=== PATIENT | female | born 1930 | race Caucasian/White ===

== ENCOUNTER 2017-01-19 11:43 | Emergency (ER) | payer MEDICARE, MEDICAID ==
[2017-01-19] MEDS ORDERED: HYDROmorphone 0.5 MG/0.5 ML Syringe IVPUSH ONE (12:13)
[2017-01-19] MEDS ORDERED: Ondansetron 4 MG/2 ML SDV IVPUSH ONE (12:13)
--- NOTE | 2017-01-19 12:14 | EDM.PDOC ---
ED HPI GENERAL MEDICAL PROBLEM - General Chief Complaint: Upper Extremity Injury/Pain Stated Complaint: RT WRIST INJURY Time Seen by Provider: 01/19/17 12:07 Source of Information: Reports: Patient, Family (Plan) History Limitations: Reports: No Limitations - History of Present Illness INITIAL COMMENTS - FREE TEXT/NARRATIVE: 86-year-old from [place] presents to the ED after slipping and falling outside while weeding the garden. Landed on outstretched right hand. She had obvious pain and deformity to the wrist area. She reports mild pain in the right upper arm and shoulder. She denies any other injuries other than scraping up her left knee a little bit. Injury occurred about an hour ago. Patient is right-hand dominant. Onset: Today, Sudden Onset Date: 01/19/17 Onset Time: 11:00 Duration: Minutes: Location: Reports: Upper Extremity, Right (Right wrist) Quality: Reports: Ache, Pressure, Throbbing Severity: Moderate Improves with: Reports: None Worsens with: Reports: Movement Context: Reports: Activity (Fell while picking weeds.) Associated Symptoms: Reports: Other (Right upper arm and shoulder discomfort. Abrasions left knee). Denies: Confusion, Chest Pain, Cough, cough w sputum, Diaphoresis, Fever/Chills, Headaches, Loss of Appetite, Malaise, Nausea/Vomiting , Rash, Seizure, Shortness of Breath, Syncope Treatments LEARNING CENTER COORDINATOR: Reports: Other (see below) Right Wrist Pain Score (Numeric/FACES): 5 - Related Data Allergies Allergy/AdvReac Type Severity Reaction Status Date / Time adhesive tape Allergy Cannot Verified 01/19/17 12:04 Remember Home Meds: Home Meds Aspirin [Ecotrin] 325 mg PO DAILY 04/18/16 [History] Calcium Carbonate [Calcium] 600 mg PO DAILY 04/18/16 [History] Cholecalciferol (Vitamin D3) [Vitamin D3] 2,000 unit PO DAILY 04/18/16 [History] ClonazePAM [KlonoPIN] 0.5 mg PO BEDTIME 04/18/16 [History] Cyanocobalamin (Vitamin B12) [Vitamin B12] 1,000 mcg PO DAILY 04/18/16 [History] Levothyroxine 25 mcg PO ACBREAKFAST 04/18/16 [History] Metoprolol Succinate 50 mg PO DAILY 04/18/16 [History] Multivitamin [Multivitamins] 1 tab PO DAILY 04/18/16 [History] Omeprazole 20 mg PO DAILY 04/18/16 [History] Potassium Chloride 20 meq PO DAILY 04/18/16 [History] Venlafaxine [Effexor XR] 150 mg PO DAILY 04/18/16 [History] metFORMIN HCl [Metformin HCl] 500 mg PO BID 04/18/16 [History] traMADol [Ultram] 50 mg PO Q6H PRN #20 tablet 01/19/17 [Rx] Past Medical History Cardiovascular History: Reports: Arrhythmia, Hypertension Musculoskeletal History: Reports: Arthritis, Osteoarthritis, Osteoporosis Psychiatric History: Reports: Anxiety, Dementia Endocrine/Metabolic History: Reports: Diabetes, Type II, Hypothyroidism, Vitamin D Deficiency, Other (See Below) Other Endocrine/Metabolic History: Hypokalemia - Past Surgical History Musculoskeletal Surgical History: Reports: Joint Replacement, Knee Replacement ( Right knee replacement.) Social & Family History - Tobacco Use Smoking Status *Q: Never Smoker - Recreational Drug Use Recreational Drug Use: No - Living Situation & Occupation Living situation: Reports: Single, Other (Lives at [facility].) Occupation: Retired Review of Systems - Review of Systems Review Of Systems: See Below Constitutional: Reports: No Symptoms Eyes: Reports: No Symptoms Ears: Reports: No Symptoms Nose: Reports: No Symptoms Mouth/Throat: Reports: No Symptoms Respiratory: Reports: No Symptoms Cardiovascular: Reports: No Symptoms GI/Abdominal: Reports: No Symptoms Genitourinary: Reports: Other (Frequency) Musculoskeletal: Reports: No Symptoms, Back Pain, Other (Has osteoarthritis in her hips and knees.) Skin: Reports: No Symptoms Neurological: Reports: No Symptoms Trauma Exam - Physical Exam Exam: See Below Exam Limited By: No Limitations General Appearance: Reports: Alert, WD/WN, Moderate Distress Head: Reports: Atraumatic, Normocephalic Eyes: Bilateral Eye: Normal Inspection Throat/Mouth: Reports: Normal Inspection, Normal Lips, Normal Oropharynx Respiratory Exam: Reports: No Respiratory Distress, Lungs Clear, Normal Breath Sounds, No Accessory Muscle Use. Denies: Rib Tenderness, Right, Rib Tenderness , Left Cardiovascular: Reports: Normal Peripheral Pulses, Regular Rate, Rhythm, No Edema, No Gallop, No Murmur GI/Abdominal: Reports: Normal Bowel Sounds, Soft, Non-Tender, No Distention Extremities: Other (She has an obvious hematoma radial aspect of the wrist with deformity. Ulnar and radial pulses are weak but present professional abrasions to the left anterior knee teeth. The right knee has been previously replaced in the interim today..) Neurologic: Reports: No Motor/Sensory Deficits, Alert, Normal Mood/Affect, Oriented x 3 Skin: Reports: Normal Color, Warm/Dry ED TRAUMA EXTREMITY PROCEDURES - Joint Reduction Site: other (Colles' fracture right wrist) Sedation: hematoma/fracture block Local anesthesia - Bupivicaine (Marcaine): 0.5% plain Local anesthetic volume: other (8 cc) Pre-procedure NV status: normal Post-procedure NV status: normal Technique: traction/counter traction Number of Attempts: 1 Post-reduction imaging: acceptably reduced, fracture seen Joint Reduction Complications: No Course - Vital Signs Last Recorded V/S: Last Vital Signs Temp 36.9 C 01/19/17 12:04 Pulse 70 01/19/17 15:20 Resp 14 01/19/17 15:20 BP 130/70 01/19/17 15:20 Pulse Ox 95 01/19/17 15:20 - Orders/Labs/Meds Orders: Active Orders 24 hr Category Date Time Status Wrist 2V Lt [CR] Stat Exams 01/19/17 14:42 Taken Labs: Laboratory Tests 01/19/17 01/19/17 01/19/17 Range/Units 12:51 12:51 12:51 WBC 7.04 (3.98-10.04) K/mm3 RBC 4.18 (3.98-5.22) M/mm3 Hgb 12.0 (11.2-15.7) gm/L Hct 36.3 (34.1-44.9) % MCV 86.8 (79.4-94.8) fl MCH 28.7 (25.6-32.2) pg MCHC 33.1 (32.2-35.5) g/dl RDW Std Deviation 40.6 (36.4-46.3) fL Plt Count 341 (182-369) K/mm3 MPV 8.9 L (9.4-12.3) fl Neutrophils % (Manual) 74 H (40-60) % Band Neutrophils % 4 (0-10) % Lymphocytes % (Manual) 18 L (20-40) % Atypical Lymphs % 0 % Monocytes % (Manual) 3 (2-10) % Eosinophils % (Manual) 0 L (0.7-5.8) % Basophils % (Manual) 1 (0.1-1.2) Platelet Estimate Adequate Plt Morphology Comment Normal RBC Morph Comment Normal PT 10.1 (8.0-13.0) SECONDS INR 0.93 APTT 27 (22-36) SECONDS Sodium 136 (136-145) mEq/L Potassium 4.2 (3.5-5.1) mEq/L Chloride 100 (98-107) mEq/L Carbon Dioxide 28 (21-32) mEq/L Anion Gap 12.2 (5-15) BUN 20 H (7-18) mg/dL Creatinine 0.6 (0.55-1.02) mg/dL Est Cr Clr Drug Dosing 50.13 mL/min Estimated GFR (MDRD) > 60 (>60) mL/min BUN/Creatinine Ratio 33.3 H (14-18) Glucose 103 (83-115) mg/dL Calcium 9.0 (8.5-10.1) mg/dL Total Bilirubin 0.3 (0.2-1.0) mg/dL AST 17 (15-37) U/L ALT 20 (14-59) U/L Alkaline Phosphatase 75 (46-116) U/L Total Protein 7.0 (6.4-8.2) g/dl Albumin 3.7 (3.4-5.0) g/dl Globulin 3.3 gm/dL Albumin/Globulin Ratio 1.1 (1-2) Meds: Medications Discontinued Medications Generic Name Dose Route Start Last Admin Trade Name Freq PRN Reason Stop Dose Admin Bupivacaine HCl 10 ml 01/19/17 13:30 01/19/17 14:10 Sensorcaine-Mpf 0.5% INJECT 01/19/17 13:31 10 ml ONETIME ONE Administration Hydromorphone HCl 0.5 mg 01/19/17 12:13 01/19/17 12:59 Dilaudid IVPUSH 01/19/17 12:14 0.5 mg ONETIME ONE Administration Sodium Chloride 1,000 mls @ 100 mls/hr 01/19/17 12:15 01/19/17 12:57 Normal Saline IV 100 mls/hr ASDIRECTED WILLIAM Administration Ondansetron HCl 4 mg 01/19/17 12:13 01/19/17 12:59 Zofran IVPUSH 01/19/17 12:14 4 mg ONETIME ONE Administration - Radiology Interpretation Free Text/Narrative:: 86-year-old female presents the ED after falling while picking weeds. She landed on her outstretched right hand injuring her right wrist. Exam reveals obvious deformity and hematoma radial aspect of the wrist. Plan x-ray of the wrist will be obtained. She appears to have strained some of the musculature in her upper shoulder but range of motion is normal. Mild abrasions to the left anterior knee that are not deep enough to require a tetanus shot the septum. There are no open wounds. - Re-Assessments/Exams Free Text/Narrative Re-Assessment/Exam: 01/19/17 13:00: X-rays confirmed a comminuted shortened fracture of the distal radius and a fracture of the ulnar styloid process. The radial styloid is compressed slightly below the ulnar styloid therefore there is a significant loss of length. Case discussed with Dr. Chau Ponce. orthopedic surgeon and he feels that with hematoma block and closed reduction using the [place] finger trap will likely return to suitable length to treat her nonsurgically. Therefore hematoma probably carried out using Marcaine 0.5%. Will get fingertrap from the OR. 01/19/17 14:49 reduction of the Colles' fracture done with hematoma block using 0.5% Marcaine 8 mils instilled. use the finger [place] fingertra reduction with 10 pounds of weight. Satisfacory reduction occurred and she was splinted in Orthoplast splint. She will be placed in a sling for comfort. We'll discharge on tramadol 50 mg every 6 hours when necessary for pain relief. May also use Tylenol 650 mg every 6 hours for pain relief as well. She will make followup arrangements with Dr. Ritchie tentatively Thursday this week for cast placement. 01/19/17 14:59 postreduction films reveal that it is more anatomically aligned but it is not restored completely in length. It is felt to be in satisfactory position to heal in this position. Patient is to followup with Dr. Albright on Thursday and his office will be giving her a call tomorrow to arrange a satisfactory at time. An oblique cast will be placed at that time. Departure - Departure Time of Disposition: 15:20 Disposition: Home, Self-Care 01 Condition: fair Clinical Impression: Closed fracture of radius Qualifiers: Encounter type: initial encounter Radius location: distal Fracture morphology: Colles' Laterality: right Qualified Code(s): S52.531A - Colles' fracture of right radius, initial encounter for closed fracture Fracture of radius and ulna Qualifiers: Encounter type: initial encounter Fracture type: closed Laterality: right Qualified Code(s): S52.501A - Unspecified fracture of the lower end of right radius, initial encounter for closed fracture - Discharge Information Prescriptions: traMADol [Ultram] 50 mg PO Q6H PRN #20 tablet PRN Reason: fracture pain. Instructions: Radial Fracture, Ulnar Fracture Referrals: Evelyn Payton NP [Primary Care Provider] - Forms: ED Department Discharge Additional Instructions: Evaluation in the emergency room today in regards to fall on outstretched right hand with acute injury to the wrist area. X-rays confirmed a comminuted fracture of the distal radius that was shortened and an ulnar styloid process fracture. Under hematoma block the radius was reduced back into anatomical position to restore to almost normal length. Orthoglass splint has been applied to keep it in that position until followup with Dr. Ritchie later this week. May use tramadol 50 mg every 6 hours for pain relief and also Tylenol 650 mg every 4-6 hours for pain relief if needed. Elevate on the pill and ice pack over the splint today and tomorrow for one half hour of every 4 hours would be advised. Sling on during the day for the next 3-5 days for comfort and to prevent swelling. - My Orders Last 24 Hours: My Active Orders 01/19/17 14:42 Wrist 2V Lt [CR] Stat - Assessment/Plan Last 24 Hours: My Active Orders 01/19/17 14:42 Wrist 2V Lt [CR] Stat ED JOINT REDUCTION/SPLINTING - Joint Reduction Site: other (Right wrist) Sedation: hematoma/fracture block Local anesthesia - Bupivicaine (Marcaine): 0.5% plain Local anesthetic volume: other (8 cc) Pre-procedure NV status: normal Post-procedure NV status: normal Technique: traction/counter traction Number of Attempts: 1 Post-reduction imaging: acceptably reduced, fracture seen Complications: No
[2017-01-19] MEDS ORDERED: Sodium Chloride 0.9% 1,000 ML IV SCH (12:15)
[2017-01-19] MEDS ORDERED: Bupivacaine 0.5% 10 ML SDV INJECT ONE (13:30)
--- NOTE | 2017-01-19 14:56 | CR ---
Right wrist: Four views of the right wrist were obtained. Fracture is identified within the distal radius. Posterior impaction is seen causing dorsal tilt of the distal radial articular margin. Avulsion fracture noted off the ulnar styloid process. Degenerative change noted between the navicular bone and trapezium. Cyst noted within the navicular bone felt to be degenerative. Soft tissue swelling is noted. Impression: 1. Distal radial fracture and ulnar styloid process fracture as described above. 2. Degenerative change as noted above. 3. Soft tissue swelling. Diagnostic code #3
[2017-01-19 15:25] VITALS: BP 130/70
--- NOTE | 2017-01-20 11:41 | CR ---
Right wrist: Three views of the right wrist were obtained. Comparison: Previous right wrist study of 01/19/17. Previous radial fracture shows better alignment on current exam. Degenerative change previously described is again noted. Fiberglass cast is in place. Slightly displaced ulnar styloid process fracture is again noted. Impression: 1. Slightly improved alignment of previous fracture within the distal radius. 2. Other incidental findings. Diagnostic code #3
== END 2017-01-19 15:25 | disposition home or self-care (01) ==
LOC: JD.ED 11:43
DX: S52.531A Colles' fracture of right radius, initial encounter for closed fracture (principal); S52.501A Unspecified fracture of the lower end of right radius, initial encounter for closed fracture; I10 Essential (primary) hypertension; M19.90 Unspecified osteoarthritis, unspecified site; E03.9 Hypothyroidism, unspecified; E11.9 Type 2 diabetes mellitus without complications; F41.9 Anxiety disorder, unspecified; Z88.8 Allergy status to other drugs, medicaments and biological substances; Z79.82 Long term (current) use of aspirin; Z79.84 Long term (current) use of oral hypoglycemic drugs; Z79.899 Other long term (current) drug therapy; Z96.651 Presence of right artificial knee joint; W01.0XXA Fall on same level from slipping, tripping and stumbling without subsequent striking against object, initial encounter
CPT/HCPCS: 25605; 36415; 73100; 73110; 80053; 85025; 85610; 85730; 96361; 96374; 96375; 99284; J1170; J2405; J7040; 25565; 29125

== ENCOUNTER 2017-01-21 11:39 | Emergency (ER) | payer MEDICARE, MEDICAID ==
[2017-01-21 11:55] VITALS: BP 155/65
[2017-01-21] MEDS ORDERED: Sodium Chloride 0.9% 10 ML Syringe FLUSH PRN (12:14)
[2017-01-21] MEDS ORDERED: Sodium Chloride 0.9% 1,000 ML IV SCH (12:15)
[2017-01-21] MEDS ORDERED: HYDROmorphone 0.5 MG/0.5 ML Syringe IVPUSH ONE (12:15)
--- NOTE | 2017-01-21 12:22 | EDM.PDOC ---
ED HPI GENERAL MEDICAL PROBLEM - General Chief Complaint: Upper Extremity Injury/Pain Stated Complaint: WRIST PAIN AND FEVER Time Seen by Provider: 01/21/17 11:59 Source of Information: Reports: Patient History Limitations: Reports: No Limitations - History of Present Illness INITIAL COMMENTS - FREE TEXT/NARRATIVE: Patient is a 86-year-old female who presents to the ED complaining of increasing pain to the right upper arm, elbow, forearm, wrist, hand, fingers. Patient also noted increased swelling and redness to her hand and fingers. Patient suffered a fracture to the ulna and radial bones 01/19/2017. She was seen in the ED with reduction of fracture and fiberglass splint applied. Patient states since placement of the cast she has notice increased swelling to the hand and fingers. States the pain has grown increasingly worse. She is taking Tylenol with little relief. Pain is a 9/10 currently. States she's felt mildly warm and is having intermittent chills. She denies any shortness of breath, chest pain, nausea/vomiting, abdominal pain, dysuria, or any additional complaints. Patient states she was on warfarin at one point due to blood clot after femur fracture. She is concerned she may have a blood clot. Onset: Gradual Duration: Constant, Getting Worse, Waxing/Waning Location: Reports: Upper Extremity, Right Quality: Reports: Ache, Sharp, Throbbing Severity: Severe Improves with: Reports: None Worsens with: Reports: Other (palpation) Context: Reports: Trauma Treatments INSPECTOR GENERAL: Reports: Other (see below) (tramadol) Right Arm Pain Score (Numeric/FACES): 6 - Related Data Allergies Allergy/AdvReac Type Severity Reaction Status Date / Time adhesive tape Allergy Cannot Verified 01/21/17 11:55 Remember Home Meds: Home Meds Aspirin [Ecotrin] 325 mg PO DAILY 04/18/16 [History] Calcium Carbonate [Calcium] 600 mg PO DAILY 04/18/16 [History] Cholecalciferol (Vitamin D3) [Vitamin D3] 2,000 unit PO DAILY 04/18/16 [History] ClonazePAM [KlonoPIN] 0.5 mg PO BEDTIME 04/18/16 [History] Cyanocobalamin (Vitamin B12) [Vitamin B12] 1,000 mcg PO DAILY 04/18/16 [History] Levothyroxine 25 mcg PO ACBREAKFAST 04/18/16 [History] Metoprolol Succinate 50 mg PO DAILY 04/18/16 [History] Multivitamin [Multivitamins] 1 tab PO DAILY 04/18/16 [History] Omeprazole 20 mg PO DAILY 04/18/16 [History] Potassium Chloride 20 meq PO DAILY 04/18/16 [History] Venlafaxine [Effexor XR] 150 mg PO DAILY 04/18/16 [History] metFORMIN HCl [Metformin HCl] 500 mg PO BID 04/18/16 [History] traMADol [Ultram] 50 mg PO Q6H PRN #20 tablet 01/19/17 [Rx] Past Medical History Cardiovascular History: Reports: Arrhythmia, Hypertension Musculoskeletal History: Reports: Arthritis, Osteoarthritis, Osteoporosis Psychiatric History: Reports: Anxiety, Dementia Endocrine/Metabolic History: Reports: Diabetes, Type II, Hypothyroidism, Vitamin D Deficiency, Other (See Below) Other Endocrine/Metabolic History: Hypokalemia - Past Surgical History Musculoskeletal Surgical History: Reports: Joint Replacement, Knee Replacement Social & Family History - Tobacco Use Smoking Status *Q: Never Smoker - Caffeine Use Caffeine Use: Reports: None - Recreational Drug Use Recreational Drug Use: No - Living Situation & Occupation Living situation: Reports: Single, Other (Lives at [facility] in [place].) Occupation: Retired Review of Systems - Review of Systems Review Of Systems: See Below Constitutional: Reports: Chills Respiratory: Denies: Shortness of Breath, Cough, Sputum Cardiovascular: Denies: Chest Pain, Lightheadedness, Syncope GI/Abdominal: Denies: Abdominal Pain Musculoskeletal: Reports: Other (Right forearm pain 2nd to ulnar/radial fracture , increased swelling/redness to hand/fingers. Increased pain noted tothe right elbow and upper arm. No swelling or increased warmth noted. ) Trauma Exam - Physical Exam Exam: See Below Exam Limited By: No Limitations General Appearance: Reports: Alert, WD/WN, Moderate Distress Eyes: Bilateral Eye: PERRL Ears: Reports: Hearing Grossly Normal Nose: Reports: Normal Inspection Throat/Mouth: Reports: Normal Voice, No Airway Compromise Neck: Reports: Normal Inspection Respiratory Exam: Reports: No Respiratory Distress, Lungs Clear, Normal Breath Sounds, No Accessory Muscle Use, Chest Non-Tender Cardiovascular: Reports: Normal Peripheral Pulses, Regular Rate, Rhythm, No Murmur Extremities: Other (Swelling cast in place to the right forearm/wrist. Increased redness/swelling to the hand. Increased pain with palpation (upper arm, elbow, forearm, wrist, hand, and fingers. No sensory deficits distally. Pulses intact.) Neurologic: Reports: No Motor/Sensory Deficits, Alert Skin: Reports: Normal Color, Warm/Dry ED TRAUMA EXTREMITY PROCEDURES - Splinting Right Upper Extremity Pre-procedure NV status: normal Post-procedure NV status: normal Splint material: fiberglass Splint design: sugar tong Applied & form fitted by: provider Provider post-splint application NV check: NV status normal, good position Complications: No Course - Vital Signs Last Recorded V/S: Last Vital Signs Temp 98.7 F 01/21/17 16:25 Pulse 69 01/21/17 16:25 Resp 18 01/21/17 16:25 BP 155/65 H 01/21/17 11:48 Pulse Ox 97 01/21/17 16:25 - Orders/Labs/Meds Orders: Active Orders 24 hr Category Date Time Status Peripheral IV Care [RC] . DIRECTED Care 01/21/17 12:15 Active Peripheral IV Insertion Adult [OM.PC] Stat Oth 01/21/17 12:14 Ordered Labs: Laboratory Tests 01/21/17 01/21/17 Range/Units 12:20 12:20 WBC 8.22 (3.98-10.04) K/mm3 RBC 4.04 (3.98-5.22) M/mm3 Hgb 11.5 (11.2-15.7) gm/L Hct 34.8 (34.1-44.9) % MCV 86.1 (79.4-94.8) fl MCH 28.5 (25.6-32.2) pg MCHC 33.0 (32.2-35.5) g/dl RDW Std Deviation 41.2 (36.4-46.3) fL Plt Count 322 (182-369) K/mm3 MPV 9.1 L (9.4-12.3) fl Neut % (Auto) 76.8 H (34.0-71.1) % Lymph % (Auto) 13.3 L (19.3-51.7) % [place] % (Auto) 9.5 (4.7-12.5) % Eos % (Auto) 0.1 L (0.7-5.8) Baso % (Auto) 0.1 (0.1-1.2) % Neut # (Auto) 6.31 H (1.56-6.13) K/mm3 Lymph # (Auto) 1.09 L (1.18-3.74) K/mm3 [place] # (Auto) 0.78 H (0.24-0.36) K/mm3 Eos # (Auto) 0.01 L (0.04-0.36) K/mm3 Baso # (Auto) 0.01 (0.01-0.08) K/mm3 Sodium 137 (136-145) mEq/L Potassium 3.4 L (3.5-5.1) mEq/L Chloride 101 (98-107) mEq/L Carbon Dioxide 26 (21-32) mEq/L Anion Gap 13.4 (5-15) BUN 14 (7-18) mg/dL Creatinine 0.6 (0.55-1.02) mg/dL Est Cr Clr Drug Dosing TNP Estimated GFR (MDRD) > 60 (>60) mL/min BUN/Creatinine Ratio 23.3 H (14-18) Glucose 98 (83-115) mg/dL Calcium 8.8 (8.5-10.1) mg/dL Total Bilirubin 0.6 (0.2-1.0) mg/dL AST 18 (15-37) U/L ALT 22 (14-59) U/L Alkaline Phosphatase 78 (46-116) U/L C-Reactive Protein 12.0 H* (<1.0) mg/dL Total Protein 7.1 (6.4-8.2) g/dl Albumin 3.5 (3.4-5.0) g/dl Globulin 3.6 gm/dL Albumin/Globulin Ratio 1.0 (1-2) Meds: Medications Discontinued Medications Generic Name Dose Route Start Last Admin Trade Name Freq PRN Reason Stop Dose Admin Hydrocodone Bitart/Acetaminophen 1 tab 01/21/17 16:16 01/21/17 16:23 [place] 325-5 Mg PO 01/21/17 16:17 1 tab ONETIME ONE Administration Hydromorphone HCl 0.25 mg 01/21/17 12:15 01/21/17 12:28 Dilaudid IVPUSH 01/21/17 12:16 0.25 mg ONETIME ONE Administration Sodium Chloride 1,000 mls @ 75 mls/hr 01/21/17 12:15 01/21/17 12:28 Normal Saline IV 75 mls/hr ASDIRECTED WILLIAM Administration Sodium Chloride 10 ml 01/21/17 12:14 01/21/17 12:25 Saline Flush FLUSH 10 ml ASDIRECTED PRN Administration Keep Vein Open - Re-Assessments/Exams Free Text/Narrative Re-Assessment/Exam: 01/21/17 12:17 Ordered a peripheral IV with normal saline 75 mils per hour, Dilaudid 0.25 mg IVP, Zofran 4 mg IVP. Initial labs and studies include CRP, CBC , chem 14, x-ray of the right wrist, and VL duplex right upper arm. Splint was partially removed. X-ray obtained revealed no significant changes from previous x-ray. Reassessment, pain has decreased but discolorization and swelling has not changed with removal of splint. Labs reviewed: White blood cell count 8.22, hemoglobin 7.5, platelets 322, neutrophil percent is 76.8, neutral #6.31, sodium is 137, potassium 3.4, CRP 12. Called Dr. Saeed, no answer.Left message to call E.D. He did call back and will come to the E.D. to evaluate patient in the E.D. Patient is suppose to see him on outpatient status. 01/21/17 16:04 Ultrasound of the right upper extremity impression: No definite findings of venous thrombosis are seen within the right upper extremity. 01/21/17 18:48 Dr. Saeed arrived in the E.D. to evaluate the patient. Suggested sugar tong splint be applied loosely. Although significant swelling of hand examination did not elicit findings for compartment syndrome. Sugar tong splint applied with no complications. Will discharge patient home with instructions. Departure - Departure Time of Disposition: 17:08 Disposition: Home, Self-Care 01 Condition: good Clinical Impression: Closed fracture of radius and ulna Qualifiers: Encounter type: subsequent encounter Laterality: right Fracture healing: with routine healing Qualified Code(s): S52.201D - Unspecified fracture of shaft of right ulna, subsequent encounter for closed fracture with routine healing - Discharge Information Instructions: Forearm Fracture, [id number] Referrals: Evelyn Payton NP [Primary Care Provider] - Forms: ED Department Discharge Additional Instructions: keep splint in place until evaluated by Dr. Saeed next Thursday. Apply ice to affected area 4 to 6 times daily, 20 minutes in duration, do not apply ice directly on the skin. Take tylenol and low dose ibuprofen in alternating fashion for pain. Take the tramadol for severe pain injunction with tylenol. Keep appt with Dr. Saeed as scheduled. Elevate the arm when able to reduce swelling and pain. Return to the E.D. for any new or worsening symptoms. - My Orders Last 24 Hours: My Active Orders 01/21/17 12:14 Peripheral IV Insertion Adult [OM.PC] Stat 01/21/17 12:15 Peripheral IV Care [RC] . DIRECTED - Assessment/Plan Last 24 Hours: My Active Orders 01/21/17 12:14 Peripheral IV Insertion Adult [OM.PC] Stat 01/21/17 12:15 Peripheral IV Care [RC] . DIRECTED
--- NOTE | 2017-01-21 14:06 | CR ---
Right wrist: Four views of the right wrist were obtained. Comparison: Previous right wrist study of 01/19/17. Distal radial fracture is again noted. Ulnar styloid process fracture is again noted. Mild posterior impaction is seen which appears slightly more prominent than noted on post reduction film. Fiberglass cast in place. Degenerative change is noted off the distal navicular bone. Cystic change remains stable within the navicular bone. Impression: 1. Slight increased posterior impaction from prior post reduction film of 01/19/17. 2. Fractures are otherwise stable. Diagnostic code #3
--- NOTE | 2017-01-21 15:57 | US ---
Right upper extremity venous ultrasound: Duplex and color flow imaging was obtained of the right internal jugular, subclavian, axillary, basilic, cephalic, brachial, axillary, radial and ulnar veins. Technologist's note: Limited study due to limited arm movement of right unsplinted arm fracture Findings: Normal color Doppler flow is seen within the veins. Nothing appreciated to indicate deep venous thrombosis. Impression: 1. No definite findings of venous thrombosis are seen within the right upper extremity. Diagnostic code #1
[2017-01-21] MEDS ORDERED: Acetaminophen/HYDROcodone 325-5 MG Tab PO ONE (16:16)
== END 2017-01-21 17:17 | disposition home or self-care (01) ==
LOC: JD.ED 11:39
DX: S52.201D Unspecified fracture of shaft of right ulna, subsequent encounter for closed fracture with routine healing (principal); I10 Essential (primary) hypertension; M19.90 Unspecified osteoarthritis, unspecified site; M81.0 Age-related osteoporosis without current pathological fracture; E11.9 Type 2 diabetes mellitus without complications; Z96.659 Presence of unspecified artificial knee joint
CPT/HCPCS: 29105; 36415; 73110; 80053; 85025; 86140; 93971; 96361; 96374; 99285; A9270; J1170; J7040; J7050; 29125; 99283